=== PATIENT | male | born 1960 | race Caucasian/White ===

== ENCOUNTER → 2018-06-30 | Outpatient (CLI) | payer BC ==
--- NOTE | 2018-06-30 14:01 | KCIC ---
Lumbar spine, 3 views, 06/30/2018: HISTORY: Back pain with sciatica The lumbar vertebral heights are well-maintained. There are moderate scattered anterior spurs. The disc spaces are fairly well-maintained. No fracture or dislocation is identified. The paraspinous soft tissues are unremarkable. IMPRESSION: 1. Mild scattered degenerative changes. 2. No acute bony abnormality is detected. Electronically signed by: Eris Barr MD (06/30/2018 1:57 PM) [facility]
== END | disposition home or self-care (01) ==
LOC: KCIC 09:03
PROVIDERS: ATTEND Nurse Practitioner Family
DX: M47.896 Other spondylosis, lumbar region (principal); M46.06 Spinal enthesopathy, lumbar region
CPT/HCPCS: 72100